=== PATIENT | male | born 1945 | race Caucasian/White ===

== ENCOUNTER 2020-02-20 14:01 | Emergency (ER) | payer MEDICARE ==
[~2020-02-20] VITALS: Ht 193 cm; Wt 79.5 kg
[~2020-02-20 14:01] MED LIST: ASPI-630 PO; CRESTOR10 MG PO; GLYB5TAB3 PO; HYDR-2765 PO; INSU100V8 SQ; METO25TA4 PO; OMEG1CAP30 PO; VITA100C4 PO
[2020-02-20] MEDS ORDERED: ONDANSETRON PF 4 MG/2 ML VIAL. IVP ONE (15:15)
[2020-02-20] MEDS ORDERED: SODIUM PHOSPHATES 19/7GM 133 ML ENEMA. PR ONE (15:15)
[2020-02-20 15:20] LABS: BASO % 0 % (0-3); EOS % 0 % (0-3); HEMATOCRIT 37.7 % (39.0-53.0); HEMOGLOBIN 12.9 g/dL (13.0-17.5); LYMPH # 0.6 x10^3/uL (1.0-4.8); LYMPH % 8 % (24-48); MEAN CORPUSCULAR HEMOGLOBIN 31 pg (25-35); MEAN CORPUSCULAR HGB CONC 34 g/dL (31-37); MEAN CORPUSCULAR VOLUME 90 fL (79-100); MONO # 0.4 x10^3/uL (0.0-1.1); MONO % 5 % (0-9); NEUT # 6.8 x10^3/uL (1.8-7.7); NEUT % 87 % (31-73); PLATELET COUNT 197 x10^3/uL (140-400); RED BLOOD COUNT 4.18 x10^6/uL (4.30-5.70); RED CELL DISTRIBUTION WIDTH 12.9 % (11.5-14.5); WHITE BLOOD COUNT 7.8 x10^3/uL (4.0-11.0)
[2020-02-20 15:21] LABS: BILIRUBIN,URINE NEGATIVE (NEG); CLARITY,URINE CLEAR; COLOR,URINE YELLOW; NITRITE,URINE NEGATIVE (NEG); PH,URINE 6.5 (<5.0-8.0); PROTEIN,URINE NEGATIVE (NEG-TRACE); UROBILINOGEN,URINE 0.2 mg/dL (0.2 mg/dL)
[2020-02-20 15:28] LABS: CALCIUM 8.8 mg/dL (8.5-10.1); CREATININE 1.3 mg/dL (0.7-1.3); GFR 53.8; POTASSIUM 4.5 mmol/L (3.5-5.1)
[2020-02-20 15:30] LABS: SQUAMOUS EPITHELIAL CELL,UR OCC /LPF
[2020-02-20 15:31] LABS: BACTERIA,URINE 0 /HPF (0-FEW); HYALINE CASTS, URINE OCCASIONAL /HPF; RBC,URINE 0 /HPF (0-2); WBC,URINE 0 /HPF (0-4)
[2020-02-20 15:33] LABS: ALBUMIN 3.7 g/dL (3.4-5.0); ALBUMIN/GLOBULIN RATIO 1.1 (1.0-1.7); TOTAL BILIRUBIN 0.6 mg/dL (0.2-1.0); TOTAL PROTEIN 7.1 g/dL (6.4-8.2)
[2020-02-20] MEDS ORDERED: CONTRAST GIVEN. MC PRN (16:00)
[2020-02-20] MEDS ORDERED: IOHEXOL 300 MG/ML 100ML VIAL. IV ONE (16:00)
--- NOTE | 2020-02-20 16:05 | PHYS DOC ---
Past Medical History Past Medical History: Diabetes-Type II Additional Past Medical Histor: NEUROPATHY Past Surgical History: Appendectomy Additional Past Surgical Histo: BACK X2 Smoking Status: Former Smoker Alcohol Use: None Drug Use: None General Adult EDM: Chief Complaint: ABDOMINAL PAIN HPI: HPI: History obtained from the patient. Patient is a 54-year-old male with past medical history notable for [id number] diabetes, who presents with a chief complaint of dysuria and difficulty in bowel movements. Patient states he has had dysuria for the past 24 hours. Denies sexual activity. Denies history of STD. He denies any blood in the urine. He does note some penile discharge. Notes mild suprapubic tenderness. Denies back pain. States he has been having trouble having bowel movements. Notes loose stools over the past 24 hours. States that he feels as though there is a mass or bulge near his anus. Denies pain with bowel movement. Is tried 1 teaspoon of MiraLAX with minimal relief. Denies blood in the stool. Notes a history of appendectomy but no other abdominal surgeries. No other complaints. Review of Systems: Review of Systems: Constitutional: Denies fever or chills. [] Eyes: Denies change in visual acuity. [] HENT: Denies nasal congestion or sore throat. [] Respiratory: Denies cough or shortness of breath. [] Cardiovascular: Denies chest pain or edema. [] GI: Positive for abdominal pain and loose stool : Positive for dysuria Musculoskeletal: Denies back pain or joint pain. [] Integument: Denies rash. [] Neurologic: Denies headache, focal weakness or sensory changes. [] Endocrine: Denies polyuria or polydipsia. [] Lymphatic: Denies swollen glands. [] Psychiatric: Denies depression or anxiety. [] Heart Score: Risk Factors: Risk Factors: DM, Current or recent (<one month) smoker, HTN, HLP, family history of CAD, obesity. Risk Scores: Score 0 - 3: 2.5% MACE over next 6 weeks - Discharge Home Score 4 - 6: 20.3% MACE over next 6 weeks - Admit for Clinical Observation Score 7 - 10: 72.7% MACE over next 6 weeks - Early Invasive Strategies Current Medications: Current Medications Medications (Trade) Dose Ordered Sig/Jenn Start Time Stop Time Status Last Admin Dose Admin Info (CONTRAST GIVEN -- Rx MONITORING) 1 each PRN DAILY PRN 02/20/20 16:00 02/22/20 15:59 Iohexol (Omnipaque 300 Mg/ml) 60 ml 1X ONCE 02/20/20 16:00 02/20/20 16:01 DC Ondansetron HCl (Zofran) 4 mg 1X ONCE 02/20/20 15:15 02/20/20 15:16 DC 02/20/20 15:18 4 MG Sodium Monofluorophosphate (Fleet Adult) 133 ml 1X ONCE 02/20/20 15:15 02/20/20 15:16 DC 02/20/20 15:15 133 ML Allergies: Allergies: Allergies Coded Allergies Type Severity Reaction Last Updated Verified haloperidol Allergy Severe MUSCLE CRAMPS 10/02/15 Yes Physical Exam: PE: Constitutional: Well developed, well nourished, no acute distress, non-toxic appearance. [] HENT: Normocephalic, atraumatic, bilateral external ears normal, oropharynx moist, no oral exudates, nose normal. [] Eyes: PERRLA, EOMI, conjunctiva normal, no discharge. [] Neck: Normal range of motion, no tenderness, supple, no stridor. [] Cardiovascular:Heart rate regular rhythm, no murmur [] Lungs & Thorax: Bilateral breath sounds clear to auscultation [] Abdomen: Soft, nontender, non-acute abdomen. No involuntary guarding or rigidity noted. No acute peritonitis. : Circumcised. No penile discharge noted. No penile tenderness. No testicular tenderness or overlying skin changes noted. No oral masses appreciated. Rectal exam with stool palpable. No external/internal hemorrhoids palpated. No prostatic tenderness or bogginess. Skin: Warm, dry, no erythema, no rash. [] Back: No tenderness, no CVA tenderness. [] Extremities: No tenderness, no cyanosis, no clubbing, ROM intact, no edema. [] Neurologic: Alert and oriented X 3, normal motor function, normal sensory funct ion, no focal deficits noted. [] Psychologic: Affect normal, judgement normal, mood normal. [] Current Patient Data: Labs: Laboratory Tests Test 02/20/20 15:10 White Blood Count 7.8 x10^3/uL (4.0-11.0) Red Blood Count 4.18 x10^6/uL (4.30-5.70) L Hemoglobin 12.9 g/dL (13.0-17.5) L Hematocrit 37.7 % (39.0-53.0) L Mean Corpuscular Volume 90 fL (79-100) Mean Corpuscular Hemoglobin 31 pg (25-35) Mean Corpuscular Hemoglobin Concent 34 g/dL (31-37) Red Cell Distribution Width 12.9 % (11.5-14.5) Platelet Count 197 x10^3/uL (140-400) Neutrophils (%) (Auto) 87 % (31-73) H Lymphocytes (%) (Auto) 8 % (24-48) L Monocytes (%) (Auto) 5 % (0-9) Eosinophils (%) (Auto) 0 % (0-3) Basophils (%) (Auto) 0 % (0-3) Neutrophils # (Auto) 6.8 x10^3/uL (1.8-7.7) Lymphocytes # (Auto) 0.6 x10^3/uL (1.0-4.8) L Monocytes # (Auto) 0.4 x10^3/uL (0.0-1.1) Eosinophils # (Auto) 0.0 x10^3/uL (0.0-0.7) Basophils # (Auto) 0.0 x10^3/uL (0.0-0.2) Platelet Estimate Pending Urine Collection Type Unknown Urine Color Yellow Urine Clarity Clear Urine pH 6.5 (<5.0-8.0) Urine Specific Emmalena 1.025 (1.000-1.030) Urine Protein Negative mg/dL (NEG-TRACE) Urine Glucose (UA) >=1000 mg/dL (NEG) Urine Ketones (Stick) 15 mg/dL (NEG) Urine Blood Negative (NEG) Urine Nitrite Negative (NEG) Urine Bilirubin Negative (NEG) Urine Urobilinogen Dipstick 0.2 mg/dL (0.2 mg/dL) Urine Leukocyte Esterase Negative (NEG) Urine RBC 0 /HPF (0-2) Urine WBC 0 /HPF (0-4) Urine Squamous Epithelial Cells Occ /LPF Urine Bacteria 0 /HPF (0-FEW) Urine Hyaline Casts Occasional /HPF Sodium Level 135 mmol/L (136-145) L Potassium Level 4.5 mmol/L (3.5-5.1) Chloride Level 99 mmol/L (98-107) Carbon Dioxide Level 25 mmol/L (21-32) Anion Gap 11 (6-14) Blood Urea Nitrogen 33 mg/dL (8-26) H Creatinine 1.3 mg/dL (0.7-1.3) Estimated GFR (Cockcroft-Gault) 53.8 BUN/Creatinine Ratio 25 (6-20) H Glucose Level 335 mg/dL (70-99) H Calcium Level 8.8 mg/dL (8.5-10.1) Total Bilirubin 0.6 mg/dL (0.2-1.0) Aspartate Amino Transferase (AST) 18 U/L (15-37) Alanine Aminotransferase (ALT) 33 U/L (16-63) Alkaline Phosphatase 81 U/L (46-116) Total Protein 7.1 g/dL (6.4-8.2) Albumin 3.7 g/dL (3.4-5.0) Albumin/Globulin Ratio 1.1 (1.0-1.7) Lipase 33 U/L (73-393) L Laboratory Tests 02/20/20 15:10 Laboratory Tests 02/20/20 15:10 Vital Signs: Vital Signs Date Time Temp Pulse Resp B/P (MAP) Pulse Ox O2 Delivery O2 Flow Rate FiO2 02/20/20 15:35 99.5 84 18 184/83 (116) 97 Room Air 99.5 EKG: EKG: [] Radiology/Procedures: Radiology/Procedures: [][facility] [address] [place], [place] [id number] IMAGING REPORT Signed PATIENT: VICTORINA GREGORY ACCOUNT: [id number] : 1945 LOCATION: ER AGE: 74 SEX: M EXAM STATUS: REG ER ORD. PHYSICIAN: KIKI HUNT DO REASON: abdominal pain. palpable stool on rectal exam PROCEDURE: CT ABD PELV W/ IV CONTRST ONLY EXAM: CT Abdomen and Pelvis with IV contrast INDICATION: Reason: abdominal pain. palpable stool on rectal exam / Spl. Instructions: INJ 60ML OMNI 300 / History: TECHNIQUE: Multi-detector row CT images were acquired from the lung bases through the abdomen and pelvis with the use of IV contrast. Sagittal and coronal images were acquired from the transaxial data. All CT scans performed at this facility utilize dose optimization techniques as appropriate to the exam, including the following: Automated exposure control and adjustment of the mA and/or KV according to patient size (this includes techniques or standardized protocols for targeted exams where dose is indication/reason for exam). IV CONTRAST: Administered ORAL CONTRAST: Not administered COMPARISON: None FINDINGS: LOWER CHEST: Calcifications in the region of the aortic valve and in the distribution of the pulmonary arteries are noted. No focal infiltrates of the lung bases. LIVER: Unremarkable BILIARY SYSTEM: Gallbladder is unremarkable. Bile ducts are not dilated. PANCREAS: Unremarkable SPLEEN: Unremarkable ADRENALS: Unremarkable KIDNEYS & URETERS: Kidneys show a 5 cm simple cyst at the superior pole left kidney that requires no additional imaging follow-up. They are otherwise unremarkable. BLADDER: Moderately distended, measuring 15 cm in craniocaudal extent. REPRODUCTIVE ORGANS: Prostate measures 6.6 cm in diameter. GASTROINTESTINAL: Rectal fecal distention to 7.8 cm transverse by 10.3 cm AP is noted without obvious wall thickening upstream bowel distention. The appendix is not well seen but there are no findings of acute appendicitis.. MESENTERY/PERITONEUM/RETROPERITONEUM: Unremarkable VASCULAR: Extensive arterial calcifications. No abdominal aortic aneurysm or evidence of flow-limiting stenosis. LYMPH NODES: No adenopathy OSSEOUS & SOFT TISSUES: Degenerative changes of the lumbosacral junction. No acute or aggressive appearing osseous lesions. IMPRESSION: 1. Rectal fecal distention, compatible with constipation. No findings of bowel obstruction, perforation or acute inflammation. 2. Urinary bladder distention in the setting of prostatic enlargement. Correlate for urinary retention. 3. Otherwise no acute abdominal pelvic pathology noted on contrast enhanced CT. Electronically signed by: Jaison Franklin MD (02/20/2020 5:17 PM) [id number] DICTATED and SIGNED BY: JAISON FRANKLIN MD DATE: 02/20/20 1717 Course & Med Decision Making: Course & Med Decision Making Pertinent Labs and Imaging studies reviewed. (See chart for details) Patient is a 74-year-old male who presents with chief complaint of loose stool and dysuria. Exam noted above. Vital signs unremarkable. Labs were obtained and were grossly unremarkable. Lactate normal. No leukocytosis. Urinalysis without evidence of infection. Physical exam and CT is consistent with stool in the rectal vault. Disimpaction was performed. Patient did get relief with this. Fleets enema was also administered with some effect. On repeat examination his abdomen remains benign. Vital signs been stable. I do feel he is appropriate for outpatient management. He will be discharged home with magnesium citrate and stool softeners. He was instructed to return in 24 to 48 hours should his symptoms not improve. He expressed understanding. Stable for discharge home. Dragon Disclaimer: Dragon Disclaimer: This electronic medical record was generated, in whole or in part, using a voice recognition dictation system. Departure Departure Impression: Primary Impression: Abdominal pain Qualified Codes: R10.84 - Generalized abdominal pain Additional Impression: Dysuria Disposition: 01 HOME, SELF-CARE Condition: GOOD Referrals: NO PCP (PCP) Patient Instructions: Constipation, Adult Additional Instructions: Please return the emergency department in 24 to 48 hours if her symptoms do not improve or worsen. Scripts Docusate Sodium (COLACE) 100 Mg Capsule 1 CAP PO BID for 7 Days, #14 CAP 0 Refills Prov: KIKI HUNT DO 02/20/20 Magnesium Citrate (MAGNESIUM CITRATE) 296 Ml Solution 296 ML PO ONCE for 2 Days, #600 ML Prov: KIKI HUNT DO 02/20/20 Justicifation of Admission Dx: Justifications for Admission: Justification of Admission Dx: N/A KIKI HUNT DO Feb 20, 2020 16:05
[2020-02-20 16:18] LABS: % LYMPHS 6 % (24-48); % MONOS 9 % (0-10); % SEGS 85 % (35-66); PLT ESTIMATE ADEQUATE (ADEQUATE)
[2020-02-20] MEDS ORDERED: IV NORMAL SALINE 1000ML BAG 1,000 ML IV ONE (16:30)
--- NOTE | 2020-02-20 17:19 | RAD ---
EXAM: CT Abdomen and Pelvis with IV contrast INDICATION: Reason: abdominal pain. palpable stool on rectal exam / Spl. Instructions: INJ 60ML OMNI 300 / History: TECHNIQUE: Multi-detector row CT images were acquired from the lung bases through the abdomen and pelvis with the use of IV contrast. Sagittal and coronal images were acquired from the transaxial data. All CT scans performed at this facility utilize dose optimization techniques as appropriate to the exam, including the following: Automated exposure control and adjustment of the mA and/or KV according to patient size (this includes techniques or standardized protocols for targeted exams where dose is indication/reason for exam). IV CONTRAST: Administered ORAL CONTRAST: Not administered COMPARISON: None FINDINGS: LOWER CHEST: Calcifications in the region of the aortic valve and in the distribution of the pulmonary arteries are noted. No focal infiltrates of the lung bases. LIVER: Unremarkable BILIARY SYSTEM: Gallbladder is unremarkable. Bile ducts are not dilated. PANCREAS: Unremarkable SPLEEN: Unremarkable ADRENALS: Unremarkable KIDNEYS & URETERS: Kidneys show a 5 cm simple cyst at the superior pole left kidney that requires no additional imaging follow-up. They are otherwise unremarkable. BLADDER: Moderately distended, measuring 15 cm in craniocaudal extent. REPRODUCTIVE ORGANS: Prostate measures 6.6 cm in diameter. GASTROINTESTINAL: Rectal fecal distention to 7.8 cm transverse by 10.3 cm AP is noted without obvious wall thickening upstream bowel distention. The appendix is not well seen but there are no findings of acute appendicitis.. MESENTERY/PERITONEUM/RETROPERITONEUM: Unremarkable VASCULAR: Extensive arterial calcifications. No abdominal aortic aneurysm or evidence of flow-limiting stenosis. LYMPH NODES: No adenopathy OSSEOUS & SOFT TISSUES: Degenerative changes of the lumbosacral junction. No acute or aggressive appearing osseous lesions. IMPRESSION: 1. Rectal fecal distention, compatible with constipation. No findings of bowel obstruction, perforation or acute inflammation. 2. Urinary bladder distention in the setting of prostatic enlargement. Correlate for urinary retention. 3. Otherwise no acute abdominal pelvic pathology noted on contrast enhanced CT. Electronically signed by: Gumaro Franklin MD (02/20/2020 5:17 PM) [id number]
[2020-02-20 18:06] VITALS: BP 222/108
[2020-02-20] MEDS ORDERED: MAGN296S68 PO (18:43)
[2020-02-20] MEDS ORDERED: DOCU-109 PO (18:43)
== END 2020-02-20 18:54 | disposition home or self-care (01) ==
LOC: ER 14:01
DX: R10.84 Generalized abdominal pain (principal); R30.0 Dysuria; E11.40 Type 2 diabetes mellitus with diabetic neuropathy, unspecified; Z90.89 Acquired absence of other organs; Z87.891 Personal history of nicotine dependence; Z88.8 Allergy status to other drugs, medicaments and biological substances
CPT/HCPCS: 36415; 74177; 80053; 81001; 83690; 83735; 85007; 85025; 96361; 96374; 99285; J2405; J7030; Q9967